=== PATIENT | male | born 1955 | race Caucasian/White ===

== ENCOUNTER → 2018-08-10 | Day surgery (SDC) | payer OTHER ==
[~2018-08-10] MED LIST: AMBIEN10 MG PO; FENTANYL CITRATE/PF 100MCG/2 ML INJ ONE; HYOSCYAMINE SULFATE 0.5 MG/ML AMP ONE; LEVAQUIN500 MG PO; LISINOPRIL10 MG PO; MIDAZOLAM HCL 2 MG/2 ML VIAL ONE; PROPOFOL IV EMULSION 10 MG/ML 20 ML VIAL ONE; PROPOFOL IV EMULSION 10 MG/ML 50 ML VIAL ONE; TERBINAFINE HC250 MG PO; TESSALON PERLE100 MG PEG; TRIAMTERENE-HCTZ1 EA PO; XANAX0.5 MG PO; Z.0.LOTREL 10-20 M1; Z.0.ULTRAM50 MG
[2018-08-10 12:10] LABS: BASOPHILS # (AUTO) 0.1 (0.0-0.1); EOSINOPHILS # (AUTO) 0.3 (0.0-0.4); EOSINOPHILS % 2.3 % (0.0-6.0); HEMATOCRIT 48.3 % (38.2-49.6); HEMOGLOBIN 16.9 g/dL (14.0-18.0); LYMPHOCYTES # (AUTO) 2.8 (1.0-3.2); LYMPHOCYTES % 26.5 % (18.0-39.1); MEAN CORPUSCULAR HEMOGLOBIN 32.3 pg (28-32); MEAN CORPUSCULAR VOLUME 92.4 fL (81-99); MONOCYTES # (AUTO) 0.8 (0.2-0.8); MONOCYTES % 7.1 % (4.4-11.3); NEUTROPHILS # (AUTO) 6.6 (2.1-6.9); NEUTROPHILS % 62.1 % (38.7-80.0); PLATELET COUNT 310 x10e3/uL (140-360); RED BLOOD COUNT 5.23 x10e6/uL (4.3-5.7); RED CELL DISTRIBUTION WIDTH 12.8 % (11.7-14.4)
[2018-08-10 14:55] VITALS: BP 143/97
--- NOTE | 2018-08-10 15:22 | Operative Report ---
DATE OF PROCEDURE: August 10, 2018 REFERRING PHYSICIAN: Dr. Wander Mccord. PROCEDURE PERFORMED: 1. Esophagogastroduodenoscopy with biopsies. 2. Colonoscopy with polypectomy. INDICATIONS FOR ESOPHAGOGASTRODUODENOSCOPY: Dyspepsia. INDICATIONS FOR COLONOSCOPY: 1. Colorectal cancer screening, brother with colon cancer. 2. History of colon polyps. MEDICATION: Patient was done under MAC. Please see anesthesiologist's note. PROCEDURE: Patient in left lateral decubitus position. Flexible fiberoptic Olympus gastroscope was introduced into the esophagus under direct visualization without any difficulty. There was some patchy erythema noted in distal esophagus. The scope was then advanced with ease into the stomach. Mucosa overlying the antrum and the body revealed some patchy erythema and low-grade to moderate edema and biopsies were obtained and sent to stain for H. pylori. Pylorus was of normal contour and shape; was intubated with ease and the scope was advanced all the way to the 2nd portion of the duodenum. The scope was then withdrawn slowly. Mucosa overlying the proximal 2nd portion grossly appeared to be within normal limits. A sessile polypoid lesion was noted to extend from the distal bulb into the proximal 2nd portion approximately 1.1 cm in length and that was biopsied. The scope was then withdrawn back into the stomach and retroflexed. Mucosa overlying the fundus and the cardia appeared to be within normal limits. The scope was then straightened out. The stomach was decompressed, the scope subsequently withdrawn. Patient tolerated the procedure well. IMPRESSION: 1. Distal esophagitis, mild. 2. Gastritis biopsied. Biopsy sent stain for Helicobacter pylori. 3. Sessile polypoid lesion extending from distal bulb to proximal 2nd portion of duodenum, biopsied. PLAN: Follow up histology. Initiate Protonix 40 mg 1 p.o. q.a.m. a.c. Patient was then turned around and after adequate lubrication of the anal canal, a flexible fiberoptic Olympus colonoscope was inserted into the rectum with ease and advanced all the way to the cecum. One polyp was hot biopsied from the cecum. One polyp was hot biopsied from the ileocecal valve. The scope was then withdrawn slowly. One polyp was hot biopsied from the ascending colon. One polyp was snared, one polyp was hot biopsied from the transverse colon. Some diverticular disease was noted in the distal descending and the sigmoid colon. One polyp was snared from the descending colon. Polypectomy site was hemoclipped. One polyp was snared from the sigmoid colon. One polyp was snared, 1 polyp was hot biopsied from the rectum. The scope was then retroflexed into the distal rectum and small internal hemorrhoids were noted, none of which was actively bleeding. The scope was then straightened out. It was subsequently withdrawn. Patient tolerated procedure well. IMPRESSION: 1. Cecal polyp, hot biopsied. 2. Ileocecal valve polyp, hot biopsied. 3. Ascending colon polyp, hot biopsied. 4. Transverse colon polyps x2, hot biopsied. 5. Descending colon polyps, snared and the polypectomy site hemoclipped. 6. Diverticulosis. 7. Sigmoid colon polyp, snared. 8. Rectal polyps x2, one snared and one hot biopsied. 9. Internal hemorrhoids, none actively bleeding. PLAN: Follow up histology. Initiate high-fiber, low-fat diet. Initiate high-fiber supplement. Patient will need a followup colonoscopy in 2 to 3 years. Job#: [id number] HI cc:WANDER MCCORD M.D.
== END | disposition home or self-care (01) ==
LOC: OR 11:23
PROVIDERS: ATTEND Internal Medicine Gastroenterology
DX: Z12.11 Encounter for screening for malignant neoplasm of colon (principal); Z80.0 Family history of malignant neoplasm of digestive organs; D12.0 Benign neoplasm of cecum; D12.4 Benign neoplasm of descending colon; D12.3 Benign neoplasm of transverse colon; K59.00 Constipation, unspecified; R10.31 Right lower quadrant pain; R10.13 Epigastric pain; Z68.32 Body mass index [BMI] 32.0-32.9, adult; I10 Essential (primary) hypertension; K20.9 Esophagitis, unspecified; K29.70 Gastritis, unspecified, without bleeding; K63.5 Polyp of colon; K57.30 Diverticulosis of large intestine without perforation or abscess without bleeding; K62.1 Rectal polyp; K64.8 Other hemorrhoids
CPT/HCPCS: 36415; 43239; 45384; 45385; 85025; 93005; J1980; J2250; 45378

== ENCOUNTER 2024-09-13 03:04 | Emergency (ER) | payer MEDICARE ==
[~2024-09-13] VITALS: Ht 188 cm; Wt 104.3 kg
[~2024-09-13 03:04] MED LIST changes: +ALBUTEROL0.63 MG/3 NEB; +ASPIRIN81 MG PO; +CRESTOR10 MG PO; -FENTANYL CITRATE/PF 100MCG/2 ML INJ ONE; -HYOSCYAMINE SULFATE 0.5 MG/ML AMP ONE; -MIDAZOLAM HCL 2 MG/2 ML VIAL ONE; +NEURONTIN300 MG PO; -PROPOFOL IV EMULSION 10 MG/ML 20 ML VIAL ONE; -PROPOFOL IV EMULSION 10 MG/ML 50 ML VIAL ONE; +TRELEGY ELLIPT1 EACH INH
[2024-09-13] MEDS: DEXAMETHASONE SOD PHOS 10 MG/1 ML VIAL IM ONE (03:20)
[2024-09-13 04:07] LABS: INFLUENZAE A&B ANTIGEN (RAPID) NEGATIVE (NEGATIVE); RESPIRATORY SYNC. VIRUS NEGATIVE (NEGATIVE); STREPTOCOCCUS GRP A ANTIGEN NEGATIVE (NEGATIVE)
[2024-09-13] MEDS ORDERED: MEDROL4 M2 PO (04:16)
[2024-09-13] MEDS ORDERED: AZITHROMYCIN250 MG PO (04:16)
[2024-09-13 04:17] VITALS: PULSE 101; RESP 20; TEMP 98.6; O2SAT 96
== END 2024-09-13 04:21 | disposition home or self-care (01) ==
LOC: ER 03:10
DX: R50.9 Fever, unspecified (principal); J03.90 Acute tonsillitis, unspecified; J40 Bronchitis, not specified as acute or chronic; I10 Essential (primary) hypertension; J44.9 Chronic obstructive pulmonary disease, unspecified; G62.9 Polyneuropathy, unspecified; Z11.52 Encounter for screening for COVID-19; F17.210 Nicotine dependence, cigarettes, uncomplicated
CPT/HCPCS: 0223U; 36415; 71045; 83518; 87070; 87400; 87420; 99283; J1100